=== PATIENT | female | born 1960 | race Caucasian/White ===

== ENCOUNTER 2020-05-31 15:29 | Emergency (ER) | payer BC | END 2020-05-31 15:54 | disposition home or self-care (01) | LOC: JVIRT 15:29 | DX: Z11.59 Encounter for screening for other viral diseases (principal) | CPT/HCPCS: C9803; Q3014-GT; U0003 ==

== ENCOUNTER 2020-06-21 15:33 | Emergency (ER) | payer BC | END 2020-06-21 15:59 | disposition home or self-care (01) | LOC: JVIRT 15:33 | DX: U07.1 COVID-19 (principal) | CPT/HCPCS: C9803; G2012-GT; U0003 ==